=== PATIENT | female | born 1990 | race Caucasian/White ===

== ENCOUNTER 2020-01-14 14:55 | Emergency (ER) | payer MEDICAID ==
[2020-01-14] MEDS: Ketorolac 30 MG/ML SDV IVPUSH ONE (15:19)
[2020-01-14] MEDS: Ondansetron 4 MG/2 ML SDV IVPUSH ONE (15:26)
[2020-01-14] MEDS: Alum Hydroxide/Mag Hydroxide 30 ML, Lidocaine 2% 15 ML PO ONE ×2 (15:26)
[2020-01-14] MEDS: Morphine 4 MG/ML VIAL IVPUSH ONE (17:40)
[2020-01-14] MEDS: Aluminum Hydroxide/Magnesium Hydroxide Susp 30 ML Cup PO STA (18:30)
--- NOTE | 2020-01-14 19:22 | EDM.PDOC ---
ED HPI GENERAL MEDICAL PROBLEM - General Chief Complaint: Chest Pain Stated Complaint: CHEST PAIN Time Seen by Provider: 01/14/20 15:10 Source of Information: Reports: Patient History Limitations: Reports: No Limitations - History of Present Illness INITIAL COMMENTS - FREE TEXT/NARRATIVE: c/o substernal chest burning pt has had sxs x 1m, has gone to walk-in and gotten omeprazole 40 mg daily and famotidine 20 mg daily has not used AA, has not pain meds takes no daily meds PRP Dr Rock, has not seen him inc'd burning, quite anxious and diaphoretic when she arrived, unable to hold still for EKG altho repeat EKG later was completely wnl labs 1d ago neg except CRP 2.5, repeat labs today neg except CRP 2.5 for unclear reason pt did feel much better after GI cocktail x 2 (no lido in 2nd one), Toradol 30 mg IV, MS 4 mg IV was given dilt CD 120 mg PO at d/c for presumed esophageal spasm CxR 2v was neg sxs are related to eating, has not been eating consistently had some back pain c/w referred pain from esophagus d-dimer neg, aorta silhouette wnl Epigastric Pain Score (Numeric/FACES): 10 - Related Data Allergies Allergy/AdvReac Type Severity Reaction Status Date / Time Penicillins Allergy Rash Verified 01/14/20 15:34 Home Meds: Home Meds Meloxicam 15 mg PO DAILY #14 tablet 01/14/20 [Rx] dilTIAZem HCL [Diltiazem 24Hr ER] 120 mg PO DAILY #14 cap.sa.24h 01/14/20 [Rx] Past Medical History - Past Health History Medical/Surgical History: Denies Medical/Surgical History 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 breast edc 04/25/18 Social & Family History - Family History Family Medical History: Noncontributory - Caffeine Use Caffeine Use: Reports: Coffee, Soda ED ROS GENERAL - Review of Systems Review Of Systems: See Below Constitutional: Reports: No Symptoms HEENT: Reports: No Symptoms Respiratory: Reports: No Symptoms Cardiovascular: Reports: Chest Pain Endocrine: Reports: No Symptoms GI/Abdominal: Reports: No Symptoms : Reports: No Symptoms Musculoskeletal: Reports: Back Pain Skin: Reports: No Symptoms Neurological: Reports: No Symptoms Psychiatric: Reports: Anxiety Hematologic/Lymphatic: Reports: No Symptoms Immunologic: Reports: No Symptoms ED EXAM, GI/ABD - Physical Exam Exam: See Below Exam Limited By: No Limitations General Appearance: Alert, WD/WN, No Apparent Distress Ears: Normal External Exam Nose: Normal Inspection, Normal Mucosa, No Blood Throat/Mouth: Normal Inspection, Normal Lips, Normal Voice, No Airway Compromise Head: Atraumatic, Normocephalic Neck: Normal Inspection, Supple, Non-Tender, Full Range of Motion. No: L ymphadenopathy (R), Lymphadenopathy (L) Respiratory/Chest: No Respiratory Distress, Lungs Clear, No Accessory Muscle Use, Other (good 1+ tender at sternum and parasternal area) Cardiovascular: Regular Rate, Rhythm, No Edema, No Murmur GI/Abdominal Exam: Normal Bowel Sounds, Soft, Non-Tender, No Distention Back Exam: Normal Inspection, Full Range of Motion, NT Extremities: Normal Inspection, Normal Range of Motion, Non-Tender, No Pedal Edema Neurological: Alert, Oriented, CN II-XII Intact, No Motor/Sensory Deficits Psychiatric: Other (very anxious, did respond to treatment, anxiety appeared to make sxs worse, does have old cut ballard on L forearm) Skin Exam: Warm, Dry, Intact, Normal Color, No Rash Lymphatic: No Adenopathy Course - Vital Signs Last Recorded V/S: Last Vital Signs Temp 36.9 C 01/14/20 14:55 Pulse 79 01/14/20 14:55 Resp 24 H 01/14/20 14:55 BP 150/106 H 01/14/20 14:55 Pulse Ox 100 01/14/20 14:55 - Orders/Labs/Meds Orders: Active Orders 24 hr Category Date Time Status EKG Documentation Completion [RC] ASDIRECTED Care 01/14/20 15:16 Ordered EKG Documentation Completion [RC] ASDIRECTED Care 01/14/20 16:45 Ordered Chest 2V [CR] Stat Exams 01/14/20 15:17 Ordered Diltiazem Med 01/14/20 19:14 Once 25 mg IVPUSH ONETIME ONE EKG 12 Lead [EK] Routine Ther 01/14/20 15:15 Ordered EKG 12 Lead [EK] Routine Ther 01/14/20 16:44 Ordered Medication Orders Diltiazem HCl (Diltiazem) 25 mg IVPUSH ONETIME ONE Stop: 01/14/20 19:15 Labs: Laboratory Tests 01/14/20 01/14/20 01/14/20 Range/Units 15:15 15:15 15:15 WBC 11.6 (4.5-12.0) X10-3/uL RBC 4.88 (3.23-5.20) x10(6)uL Hgb 14.3 (11.5-15.5) g/dL Hct 42.5 (30.0-51.3) % MCV 87.2 (80-96) fL MCH 29.3 (27.7-33.6) pg MCHC 33.6 (32.2-35.4) g/dL RDW 11.3 L (11.5-15.5) % Plt Count 299 (125-369) X10(3)uL MPV 8.1 (7.4-10.4) fL Neut % (Auto) 64.2 (46-82) % Lymph % (Auto) 26.5 (13-37) % [place] % (Auto) 4.1 (4-12) % Eos % (Auto) 5 (1.0-5.0) % Baso % (Auto) 1 (0-2) % Neut # (Auto) 7.4 (1.6-8.3) # Lymph # (Auto) 3.1 (0.6-5.0) # [place] # (Auto) 0.5 (0.0-1.3) # Eos # (Auto) 0.5 (0.0-0.8) # Baso # (Auto) 0.1 (0.0-0.2) # D-Dimer, Quantitative 0.40 (0.0-0.59) mg/LFEU Sodium 137 (135-145) mmol/L Potassium 4.1 (3.5-5.3) mmol/L Chloride 102 (100-110) mmol/L Carbon Dioxide 28 (21-32) mmol/L BUN 10 (7-18) mg/dL Creatinine 0.8 (0.55-1.02) mg/dL Est Cr Clr Drug Dosing TNP Estimated GFR (MDRD) > 60 (>60) BUN/Creatinine Ratio 12.5 (9-20) Glucose 98 (80-116) mg/dL Calcium 9.3 (8.6-10.2) mg/dL Troponin I (4.0-60.3) pg/mL C-Reactive Protein (0.5-0.9) mg/dL Lipase (73-393) U/L 01/14/20 01/14/20 Range/Units 15:15 15:15 WBC (4.5-12.0) X10-3/uL RBC (3.23-5.20) x10(6)uL Hgb (11.5-15.5) g/dL Hct (30.0-51.3) % MCV (80-96) fL MCH (27.7-33.6) pg MCHC (32.2-35.4) g/dL RDW (11.5-15.5) % Plt Count (125-369) X10(3)uL MPV (7.4-10.4) fL Neut % (Auto) (46-82) % Lymph % (Auto) (13-37) % [place] % (Auto) (4-12) % Eos % (Auto) (1.0-5.0) % Baso % (Auto) (0-2) % Neut # (Auto) (1.6-8.3) # Lymph # (Auto) (0.6-5.0) # [place] # (Auto) (0.0-1.3) # Eos # (Auto) (0.0-0.8) # Baso # (Auto) (0.0-0.2) # D-Dimer, Quantitative (0.0-0.59) mg/LFEU Sodium (135-145) mmol/L Potassium (3.5-5.3) mmol/L Chloride (100-110) mmol/L Carbon Dioxide (21-32) mmol/L BUN (7-18) mg/dL Creatinine (0.55-1.02) mg/dL Est Cr Clr Drug Dosing Estimated GFR (MDRD) (>60) BUN/Creatinine Ratio (9-20) Glucose (80-116) mg/dL Calcium (8.6-10.2) mg/dL Troponin I < 4.0 L (4.0-60.3) pg/mL C-Reactive Protein 2.5 H (0.5-0.9) mg/dL Lipase 73 (73-393) U/L Meds: Medications Generic Name Dose Route Start Last Admin Trade Name Freq PRN Reason Stop Dose Admin Diltiazem HCl 25 mg 01/14/20 19:14 Diltiazem IVPUSH 01/14/20 19:15 ONETIME ONE Discontinued Medications Generic Name Dose Route Start Last Admin Trade Name Freq PRN Reason Stop Dose Admin Al Hydroxide/Mg Hydroxide 30 ml 01/14/20 18:25 Mag-Al Susp PO 01/14/20 18:26 NOW STA Al Hydroxide/Mg Hydroxide 30 0 ml 01/14/20 15:12 01/14/20 15:26 ml/ Lidocaine HCl 15 ml PO 01/14/20 15:13 45 ml ONETIME ONE Administration Ketorolac Tromethamine 30 mg 01/14/20 15:12 01/14/20 15:19 Toradol IVPUSH 01/14/20 15:13 30 mg ONETIME ONE Administration Morphine Sulfate 4 mg 01/14/20 16:46 01/14/20 17:40 Morphine IVPUSH 01/14/20 16:47 4 mg ONETIME ONE Administration Ondansetron HCl 4 mg 01/14/20 15:12 01/14/20 15:26 Zofran IVPUSH 01/14/20 15:13 4 mg ONETIME ONE Administration - Re-Assessments/Exams Free Text/Narrative Re-Assessment/Exam: 01/14/20 19:28 pt with typical GERD sxs with limited response to PPI and H2 abdiaziz, should do better on inc'd regimen Departure - Departure Time of Disposition: 19:15 Disposition: Home, Self-Care 01 Condition: Fair Clinical Impression: GERD with esophagitis, Esophageal spasm - Discharge Information *PRESCRIPTION DRUG MONITORING PROGRAM REVIEWED*: Not Applicable *COPY OF PRESCRIPTION DRUG MONITORING REPORT IN PATIENT ROSALIE: Not Applicable Prescriptions: dilTIAZem HCL [Diltiazem 24Hr ER] 120 mg PO DAILY #14 cap.sa.24h Meloxicam 15 mg PO DAILY #14 tablet Instructions: Gastroesophageal Reflux Disease, Adult, Esophageal Spasm Referrals: Esvin Rock MD [Primary Care Provider] - Additional Instructions: To decrease acid production, continue your two current medications as prescribed. To coat and protect the esophagus, take liquid antacid 30 ml (2 tablespoons) every 3-4 hours as needed. To relax the esophagus and prevent spasm, take diltiazem CD 120 mg 1 tab daily for 14 days. For pain, take meloxicam 15 mg 1 tab daily for 14 days. As this is an NSAID, do not take ibuprofen or naproxen at the same time. For pain, also take acetaminophen 500 mg 2 tabs 3 times a day for [address] Rock in 2-3 days for further evaluation and recommendations. Return to ED if you are feeling worse. Sepsis Event Note (ED) - Evaluation Sepsis Screening Result: No Definite Risk - Focused Exam Vital Signs: Vital Signs Temp Pulse Resp BP Pulse Ox 01/14/20 14:55 36.9 C 79 24 H 150/106 H 100 - My Orders Last 24 Hours: My Active Orders 01/14/20 15:15 EKG 12 Lead [EK] Routine 01/14/20 15:16 EKG Documentation Completion [RC] ASDIRECTED 01/14/20 15:17 Chest 2V [CR] Stat 01/14/20 16:44 EKG 12 Lead [EK] Routine 01/14/20 16:45 EKG Documentation Completion [RC] ASDIRECTED 01/14/20 19:14 Diltiazem 25 mg IVPUSH ONETIME ONE - Assessment/Plan Last 24 Hours: My Active Orders 01/14/20 15:15 EKG 12 Lead [EK] Routine 01/14/20 15:16 EKG Documentation Completion [RC] ASDIRECTED 01/14/20 15:17 Chest 2V [CR] Stat 01/14/20 16:44 EKG 12 Lead [EK] Routine 01/14/20 16:45 EKG Documentation Completion [RC] ASDIRECTED 01/14/20 19:14 Diltiazem 25 mg IVPUSH ONETIME ONE
[2020-01-14] MEDS: Diltiazem 120 MG Cap.CD PO ONE (19:33)
[2020-01-14 19:34] VITALS: BP 148/90; PULSE 77
[2020-01-14] MEDS: Diltiazem 25 MG/5 ML SDV IVPUSH ONE (19:51)
== END 2020-01-14 19:40 | disposition home or self-care (01) ==
LOC: FB.ED 14:55
DX: K21.0 Gastro-esophageal reflux disease with esophagitis (principal); K22.4 Dyskinesia of esophagus; F41.9 Anxiety disorder, unspecified; Z88.0 Allergy status to penicillin; Z79.899 Other long term (current) drug therapy
CPT/HCPCS: 36415; 71046; 80048; 83690; 84484; 85025; 85379; 86140; 93005; 96374; 96375; 99285; A9270; J1885; J2270; J2405

== ENCOUNTER 2020-01-15 09:40 | Emergency (ER) | payer MEDICAID ==
[2020-01-15] MEDS ORDERED: Sodium Chloride 0.9% 1,000 ML IV ONE (10:28)
[2020-01-15] MEDS ORDERED: Metoclopramide 10 MG/2 ML SDV IVPUSH ONE (10:28)
[2020-01-15] MEDS ORDERED: Alum Hydroxide/Mag Hydroxide 30 ML, Lidocaine 2% 15 ML PO ONE ×2 (10:28)
[2020-01-15] MEDS ORDERED: Ketorolac 30 MG/ML SDV IVPUSH ONE (10:28)
[2020-01-15] MEDS ORDERED: Morphine 4 MG/ML VIAL IVPUSH ONE (10:28)
[2020-01-15] MEDS ORDERED: LORazepam 2 MG/ML SDV IVPUSH ONE (10:29)
[2020-01-15] MEDS: Sodium Chloride 0.9% 10 ML Syringe FLUSH PRN ×2 (10:32→11:14)
--- NOTE | 2020-01-15 10:35 | EDM.PDOC ---
ED HPI GENERAL MEDICAL PROBLEM - General Chief Complaint: Gastrointestinal Problem Time Seen by Provider: 01/15/20 10:00 Source of Information: Reports: Patient History Limitations: Reports: No Limitations - History of Present Illness INITIAL COMMENTS - FREE TEXT/NARRATIVE: c/o back and abd pain x 1m pt in ED for 4.5y yesterday with same c/w, had been to w/u clinic 3w ago and again 1w ago, taking omeprazole 40 mg/d and famotidine 20/d yesterday had Rx sent in for dilt CD 120/d (for esophageal spasm) and meloxicam 15 mg/d, she has not filled these has not eaten since she went home yesterday evening, no PO today has 20 month old and 4.5yo at home works at [employer], went to work but went in bathroom and locked the door, 30 min later when she had not come out the investment manager called pt's mother, pt finally opened the door, said she had been vomiting when she was asked here has c/o upper back pain b/l, generalized abd pain w/u neg yesterday except for CRP 2.5, CxR 2v neg yesterday did have a high anxiety level, felt better after meds here altho did not continue at home mother not aware of new stressors "does not have time for a relationship" does have old cut ballard on L forearm Back Pain Score (Numeric/FACES): 10 Abdominal Pain Score (Numeric/FACES): 9 - Related Data Allergies Allergy/AdvReac Type Severity Reaction Status Date / Time Penicillins Allergy Rash Verified 01/15/20 09:45 Home Meds: Home Meds Meloxicam 15 mg PO DAILY #14 tablet 01/14/20 [Rx] dilTIAZem HCL [Diltiazem 24Hr ER] 120 mg PO DAILY #14 cap.sa.24h 01/14/20 [Rx] Omeprazole 20 mg PO BID 01/15/20 [History] Past Medical History - Past Health History Medical/Surgical History: Denies Medical/Surgical History 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 breast Social & Family History - Family History Family Medical History: Noncontributory - Tobacco Use Smoking Status *Q: Current Every Day Smoker Years of Tobacco use: 11 Packs/Tins Daily: 0.4 - Caffeine Use Caffeine Use: Reports: None - Recreational Drug Use Recreational Drug Use: No ED ROS GENERAL - Review of Systems Review Of Systems: See Below Constitutional: Reports: No Symptoms HEENT: Reports: No Symptoms Respiratory: Reports: No Symptoms Cardiovascular: Reports: No Symptoms Endocrine: Reports: No Symptoms GI/Abdominal: Reports: Abdominal Pain, Nausea : Reports: No Symptoms Musculoskeletal: Reports: Back Pain Skin: Reports: No Symptoms Neurological: Reports: No Symptoms Psychiatric: Reports: No Symptoms Hematologic/Lymphatic: Reports: No Symptoms Immunologic: Reports: No Symptoms ED EXAM, GENERAL - Physical Exam Exam: See Below Exam Limited By: No Limitations General Appearance: Alert, WD/WN, Mild Distress, Other (anxious altho not as much so as yesterday) Eye Exam: Bilateral Eye: EOMI, PERRL Nose: Normal Inspection, Normal Mucosa, No Blood Throat/Mouth: Normal Inspection, Normal Lips, Normal Voice, No Airway Compromise Head: Atraumatic, Normocephalic Neck: Normal Inspection, Supple, Non-Tender, Full Range of Motion. No: Lymphadenopathy (R), Lymphadenopathy (L) Respiratory/Chest: No Respiratory Distress, Lungs Clear, Normal Breath Sounds, Chest Non-Tender Cardiovascular: Regular Rate, Rhythm, No Edema, No Gallop, No Murmur GI/Abdominal: Normal Bowel Sounds, Soft, No Organomegaly, No Distention, Other (nonspecific mild tender throughout) Back Exam: Normal Inspection, Full Range of Motion. No: CVA Tenderness (R), CVA Tenderness (L) Extremities: Normal Range of Motion, Non-Tender, No Pedal Edema Neurological: Alert, Oriented, CN II-XII Intact, Normal Cognition, No Motor/Sensory Deficits Psychiatric: Normal Affect, Normal Mood Skin Exam: Warm, Dry, Intact, Normal Color, No Rash Lymphatic: No Adenopathy Course - Vital Signs Last Recorded V/S: Last Vital Signs Temp 36.3 C 01/15/20 09:45 Pulse 78 01/15/20 09:45 Resp 22 H 01/15/20 09:45 BP 142/79 H 01/15/20 09:45 Pulse Ox 100 01/15/20 09:45 - Orders/Labs/Meds Orders: Active Orders 24 hr Category Date Time Status Sodium Chloride 0.9% [Saline Flush] Med 01/15/20 10:30 Active 10 ml FLUSH ASDIRECTED PRN Medication Orders Sodium Chloride (Saline Flush) 10 ml FLUSH ASDIRECTED PRN PRN Reason: IV Use Last Admin: 01/15/20 11:14 Dose: 10 ml Documented by: Admin: 01/15/20 10:32 Dose: 10 ml Documented by: MAXINE Labs: Laboratory Tests 01/15/20 01/15/20 01/15/20 Range/Units 10:30 10:30 10:30 WBC 12.6 H (4.5-12.0) X10-3/uL RBC 4.84 (3.23-5.20) x10(6)uL Hgb 14.1 (11.5-15.5) g/dL Hct 42.3 (30.0-51.3) % MCV 87.5 (80-96) fL MCH 29.1 (27.7-33.6) pg MCHC 33.3 (32.2-35.4) g/dL RDW 11.4 L (11.5-15.5) % Plt Count 273 (125-369) X10(3)uL MPV 8.1 (7.4-10.4) fL Neut % (Auto) 85.0 H (46-82) % Lymph % (Auto) 8.3 L (13-37) % [place] % (Auto) 5.1 (4-12) % Eos % (Auto) 0 L (1.0-5.0) % Baso % (Auto) 2 (0-2) % Neut # (Auto) 10.8 H (1.6-8.3) # Lymph # (Auto) 1.0 (0.6-5.0) # [place] # (Auto) 0.6 (0.0-1.3) # Eos # (Auto) 0.0 (0.0-0.8) # Baso # (Auto) 0.2 (0.0-0.2) # Sodium 136 (135-145) mmol/L Potassium 4.4 (3.5-5.3) mmol/L Chloride 98 L (100-110) mmol/L Carbon Dioxide 30 (21-32) mmol/L BUN 18 (7-18) mg/dL Creatinine 0.8 (0.55-1.02) mg/dL Est Cr Clr Drug Dosing 82.06 mL/min Estimated GFR (MDRD) > 60 (>60) BUN/Creatinine Ratio 22.5 H (9-20) Glucose 114 (80-116) mg/dL Calcium 9.4 (8.6-10.2) mg/dL Total Bilirubin 3.9 H (0.1-1.3) mg/dL AST 579 H* D (5-25) IU/L ALT 544 H* D (12-36) U/L Alkaline Phosphatase 284 H (56-112) IU/L Creatine Kinase 25 L (60-160) IU/L C-Reactive Protein 5.8 H* (0.5-0.9) mg/dL Total Protein 7.9 (6.0-8.0) g/dL Albumin 3.9 (3.5-5.2) g/dL Globulin 4.0 g/dL Albumin/Globulin Ratio 1.0 Lipase 63 L (73-393) U/L Meds: Medications Generic Name Dose Route Start Last Admin Trade Name Freq PRN Reason Stop Dose Admin Sodium Chloride 10 ml 01/15/20 10:30 01/15/20 11:14 Saline Flush FLUSH 10 ml ASDIRECTED PRN Administration IV Use Discontinued Medications Generic Name Dose Route Start Last Admin Trade Name Freq PRN Reason Stop Dose Admin Al Hydroxide/Mg Hydroxide 30 0 ml 01/15/20 10:28 01/15/20 11:07 ml/ Lidocaine HCl 15 ml PO 01/15/20 10:29 30 ml ONETIME ONE Administration Sodium Chloride 1,000 mls @ 999 mls/hr 01/15/20 10:28 01/15/20 11:10 Normal Saline IV 01/15/20 11:28 999 mls/hr .BOLUS ONE Administration Iopamidol 100 ml 01/15/20 10:38 01/15/20 10:57 Isovue-370 (76%) IV 01/15/20 10:39 100 ml . DIRECTED ONE Administration Ketorolac Tromethamine 30 mg 01/15/20 10:28 01/15/20 11:11 Toradol IVPUSH 01/15/20 10:29 30 mg ONETIME ONE Administration Lorazepam 1 mg 01/15/20 10:29 01/15/20 11:15 Ativan IVPUSH 01/15/20 10:30 1 mg ONETIME ONE Administration Meropenem 1 gm 01/15/20 12:04 01/15/20 12:18 Merrem IVPUSH 01/15/20 12:05 1 gm ONETIME ONE Administration Metoclopramide HCl 10 mg 01/15/20 10:28 01/15/20 11:09 Reglan IVPUSH 01/15/20 10:29 10 mg ONETIME ONE Administration Morphine Sulfate 4 mg 01/15/20 10:28 01/15/20 11:13 Morphine IVPUSH 01/15/20 10:29 4 mg ONETIME ONE Administration - Re-Assessments/Exams Free Text/Narrative Re-Assessment/Exam: 01/15/20 12:41 d/w Dr Willard, hospitalist at [facility], who accepted pt in transfer d/w pt's mother at length pt agrees to transfer has a new left shift c/w yesterday, CRP has inc'd in past day, will give meropenem for possible infection d/w Dr Arriaza radiologist, CBD 10 mm, lipase wnl, yet likely has obstruction, there is some stranding near GB and thickening of the GB wall d/w Dr Torres surgeon who requested transfer to [place] for probably CBD stone given inc'd bili Departure - Departure Time of Disposition: 12:40 Disposition: DC/Tfer to Acute Hospital 02 Condition: Good Clinical Impression: Choledocholithiasis with acute cholecystitis with obstruction, Elevated C- reactive protein (CRP), Leukocytosis - Discharge Information Referrals: PCP,None [Ordering Only Provider] - Forms: ED Department Discharge Sepsis Event Note (ED) - Evaluation Sepsis Screening Result: No Definite Risk - Focused Exam Vital Signs: Vital Signs Temp Pulse Resp BP Pulse Ox 01/15/20 09:45 36.3 C 78 22 H 142/79 H 100 - My Orders Last 24 Hours: My Active Orders 01/15/20 10:30 Sodium Chloride 0.9% [Saline Flush] 10 ml FLUSH ASDIRECTED PRN - Assessment/Plan Last 24 Hours: My Active Orders 01/15/20 10:30 Sodium Chloride 0.9% [Saline Flush] 10 ml FLUSH ASDIRECTED PRN
[2020-01-15] MEDS ORDERED: Iopamidol 755 Mg/ML 100 ML Bottle IV ONE (10:38)
[2020-01-15] MEDS ORDERED: Meropenem 1 GM SDV IVPUSH ONE (12:04)
--- NOTE | 2020-01-15 12:11 | CT ---
INDICATION: Nonspecific pain upper back and abdomen, increased CRP of 2.5 - unexplained. CBC negative. Lipase negative. Question cholecystitis. CT CHEST, ABDOMEN AND PELVIS WITH CONTRAST: Spiral 3.75 mm axial sections were obtained through the abdomen and pelvis, as well as the chest with sagittal and coronal reconstructions utilizing 100 mL Isovue 370 at 2 mL per second, 01/15/20 - no comparison. Total exam DLP was 1429.94 mGy-cm. CT CHEST: Examination of the chest, as noted above revealed no evidence of an active infiltrate or effusion. The heart did not appear enlarged. No pericardial effusion was seen. No mediastinal mass was noted. IMPRESSION: Normal CT chest. CT ABDOMEN AND PELVIS: Examination of the abdomen and pelvis obtained by CT as noted above. The gallbladder is slightly enlarged measuring 91 x 45 mm with a thickened wall and pericholecystic fat stranding with some minimal fluid - pericholecystic fluid also noted. There are some tiny calculi noted in the gallbladder. Findings are felt to be compatible with cholecystitis. The common bile duct is enlarged for age measuring approximately 10 mm, a definite calculus is not identified in the common bile duct in the head of the pancreas, but is suspected with some minimal echogenic appearance present within the duct. The pancreas is otherwise unremarkable, as was the liver except for slightly prominence of the ducts, and the spleen, as well as the adrenal glands and kidneys. The appendix appeared normal visualized on coronal images 39 through 49, and axial images 75 through 79. No evidence of free air or bowel obstruction was seen. Probable follicular cysts are noted at the ovaries. IUD is noted in place in the uterus. Urinary bladder was unremarkable. No retroperitoneal masses were identified. IMPRESSION: 1. Findings are compatible with cholecystitis and cholelithiasis - ultrasound would be confirmatory as felt to be clinically necessary. This is associated with possible choledocholithiasis and dilated common bile duct. 2. IUD noted in place. Report was called to Dr. Dang at 1128 hours. [facility]
[2020-01-15 22:12] VITALS: BP 135/85; PULSE 77
== END 2020-01-15 14:22 ==
LOC: FB.ED 09:40
DX: K80.42 Calculus of bile duct with acute cholecystitis without obstruction (principal); R79.82 Elevated C-reactive protein (CRP); D72.829 Elevated white blood cell count, unspecified; F17.210 Nicotine dependence, cigarettes, uncomplicated; Z88.0 Allergy status to penicillin; Z79.899 Other long term (current) drug therapy
CPT/HCPCS: 36415; 71260; 74177; 80053; 82550; 83690; 85025; 86140; 96361; 96374; 96375; 99285-25; A9270-GY; J1885; J2060; J2185; J2270; J2765; J7030; Q9967